=== PATIENT | female | born 1965 | race Caucasian/White ===

== ENCOUNTER 2020-08-07 06:50 | Outpatient (NON) | payer OTHER, SELFPAY ==
[2020-08-07 18:45] LABS: SARS-CoV-2 RNA PCR Negative
== END 2020-08-07 06:51 ==
LOC: ANHCOVIDDT 06:53
PROVIDERS: PCP Nurse Practitioner Family; Visit Provider Nurse Practitioner Family
DX: J32.9 Chronic sinusitis, unspecified (principal); J02.9 Acute pharyngitis, unspecified; Z20.828 Contact with and (suspected) exposure to other viral communicable diseases
CPT/HCPCS: 87635; C9803; U0003

== ENCOUNTER 2025-04-04 14:50 | Outpatient (CLI) | payer MEDICARE, MEDICAID, SELFPAY ==
--- OUTSIDE RECORDS SUMMARY | 2017-07-16 05:44 | XMS_ITS | Continuity of Care Document ---
Author Organization [facility] Address [address] [place] [address] [place] [address] Phone Care Team Providers Care Manufacturing Team Leader Name Role Phone Joby Patel MD Unavailable Unavailable Allergies, Adverse Reactions, Alerts Substance Reaction Status Criticality TERBINAFINE HCL Active No Informati on codeine Active No Information levofloxacin Active No Information ibuprofen Active No Information PENICILLIN Active No Information Medications Medication Instructions Dosage Effective Dates (start - stop) Status Comments Neurontin 100 mg capsule take 1 Capsule by oral route 3 times every day 100 MG - Active avoid driving or operate machines Xanax 0.25 mg tablet take 1 tablet by oral route every bedtime 0.25 MG - Active [place] 5 mg-325 mg tablet take 1 tablet b y oral route every 6 hours as needed for pain - Active PRN for pain, avoid driving or operate machines omeprazole 20 mg capsule,delayed release take 1 capsule by oral route every day before a meal 20 MG - Active Lipitor 40 mg tablet take 1 tablet by oral route every day 40 MG - Active hydrochlorothiazide 25 mg tablet take 1 tablet by oral route every day 25 MG - Active nifedipine ER 60 mg tablet,extended release 24 hr take 1 tablet by oral route every day 60 MG - Active Paxil 40 mg tablet take 1 tablet by oral route every day 40 MG - Active Procedures Procedure Date OFFICE/OUTPATIENT [...] Diagnoses Date Provider Providers Copied on Encounter [facility], [address], [place], [place], [id number], [phone] [facility] No Information Jorge Hemphill. [address], [place], [place], [address] , [place]. tel:[phone] OFFICE/OUTPA TIENT VISIT, [facility], [address], [place], [place], [address], tel:[phone] [facility] anxiety1 (chief complaint) back pain1 (chief complaint) HTN (chief complaint) Generalized Anxiety DisorderLumbago with sciatica, left sideEssential (primary) hypertension Jorge Hemphill. [address], [place], [place], [address] , [place]. tel:[phone] OFFICE/OUTPA TIENT VISIT, [facility], [address], [place], [place], [address], tel:[phone] [facility] HLP (chief complaint) GERD1 (chief complaint) anxiety1 (chief complaint) OAB (chief complaint) GERD w/o esophagitisGenerali zed Anxiety DisorderOveractive bladderHyperlipidem ia 7 Jorge Hemphill. [address], [place], [place], [address] , [place]. tel:[phone] Referring Provider: Joby Patel [address], [place], [place], [address]. tel:[phone] OFFICE/OUTPA TIENT VISIT, [facility], [address], [place], [place], [address], [place] tel:[phone] [facility] anxiety1 (chief complaint) OAB (chief complaint) GERD1 (chief complaint) back pain1 (chief complaint) Overactive bladderLumbago with sciatica, left sideGERD w/o esophagitisGenerali zed Anxiety Disorder 0 7 Jorge Hemphill. [address], [place], [place], [address] , [place]. tel:[phone] Referring Provider: Joby Patel [address], [place], [place], [address]. tel:[phone] OFFICE/OUTPA TIENT VISIT, [facility], [address], [place], [place], [address], [place] tel:[phone] [facility] back pain1 (chief complaint) OAB (chief complaint) Lumbago with sciatica, left sideOveractive bladder 7 Jorge Hemphill. [address], [place], [place], [address] , [place]. tel:[phone] Referring Provider: Ирина Duran [address], [place], [place], [address]. tel:[phone] OFFICE/OUTPA TIENT VISIT, [facility], [address], [place], [place], [address], [place] tel:[phone] [facility] anxiety1 (chief complaint) HLP (chief complaint) sinusitis1 (chief complaint) OAB (chief complaint) back pain1 (chief complaint) LumbagoGERD w/o esophagitisOveracti ve bladderGeneralized Anxiety Disorder 7 Jorge Hemphill. [address], [place], [place], [address] , [place]. tel:[phone] Referring Provider: Ирина Duran [address], [place], [place], [address]. tel:[phone] OFFICE/OUTPA TIENT VISIT, [facility], [address], [place], [place], [address], [place] tel:[phone] [facility] Medicine sinus (chief complaint) GERD1 (chief complaint) tobacco1 (chief complaint) obeisty1 (chief complaint) OAB (chief complaint) Acute sinusitisBody mass index (BMI) 32.0-32.9, adultGERD w/o esophagitisOveracti ve bladder 7 Jorge Hemphill. [address], [place], [place], [address] , [place]. tel:[phone] Referring Provider: [address], [place], [place], [address]. tel:[phone] OFFICE/OUTPA TIENT VISIT, [facility], [address], [place], [place], [address], [place] tel:[phone] [facility] anxiety1 (chief complaint) HTN (chief complaint) GERD1 (chief complaint) HLP (chief complaint) back apin1 (chief complaint) Essential (primary) hypertensionGeneral ized Anxiety DisorderHyperlipide miaLumbago 7 Jorge Hemphill. [address], [place], [place], [address] , [place]. tel:[phone] Referring Provider: [address], [place], [place], [address]. tel:[phone] OFFICE/OUTPA TIENT VISIT, [facility], [address], [place], [place], [address], [place] tel:[phone] [facility] HLP (chief complaint) anxiety1 (chief complaint) eyelid1 (chief complaint) back pain1 (chief complaint) HyperlipidemiaGener alized Anxiety DisorderLumbagoEyel id lag of rt eye 7 Jorge White [address], [place], [place], [address] , [place]. tel:[phone] Referring Provider: [address], [place], [place], [address]. tel:[phone] OFFICE/OUTPA TIENT VISIT, [facility], [address], [place], [place], [address], [place] tel:[phone] [facility] HLP (chief complaint) anxiety1 (chief complaint) GERD1 (chief complaint) drropy eye (chief complaint) back pain1 (chief complaint) HyperlipidemiaGERD w/ esophagitisGenerali zed Anxiety DisorderLumbago 7 Jorge Hemphill. [address], [place], [place], [address] , [place]. tel:[phone] Referring Provider: Ирина Duran [address], [place], [place], [address]. tel:[phone] OFFICE/OUTPA TIENT VISIT, [facility], [address], [place], [place], [address], [place] tel:[phone] [facility] anxiety1 (chief complaint) HTN (chief complaint) GERD1 (chief complaint) HLP (chief complaint) GERD w/o esophagitisGenerali zed Anxiety DisorderHyperlipide miaEssential (primary) hypertension 7 Jorge Hemphill. [address], [place], [address] , [place]. tel:[phone] Referring Provider: Ирина Duran [address], [place], [place], [address]. tel:[phone] PREV VISIT, NEW, AGE 40-64 [facility], [address], [place], [place], [address], [place] tel:[phone] [facility] PHysical (chief complaint) Encounter for general adult medical exam w abnormal findingsGERD w/ esophagitisGenerali zed Anxiety DisorderOveractive bladder 7 Jorge Hemphill. [address], [place], [address] , [place]. tel:[phone] Referring Provider: Ирина Duran [address], [place], [place], [address]. tel:[phone] Family History Family Member Type Diagnosis Age At Onset Father Problem (finding) parkinson Brother Problem (finding) Hypertension Brother Problem (finding) Alive and well Mother Problem (finding) Alive and well Payers Payer name Insurance type Covered green party ID Authoriza tion(s) No Information Social History Type Description Quantity Date Captured Comments Sex Female Smoking Status No Information Chief Complaint And Reason For Visit No Information Plan Of Treatment Date Type Action Status Referral Ordered: Kobe Adamson (related to Lumbago with sciatica, left side) ordered Referral Referred To: Kobe Adamson [address] [place], [phone] Ordered: Referrals: Kobe Adamson. Evaluate and treat [...] Pt needs refill. Pt denies any myalgia OAB Pt has OAB. Pt h as urgency and frequency and some stress induced leakage. Pt states oxybutynin caused her to have severe dry mouth. Pt uanble to tolerate it. anxiety1 Pt has chronic a nxiety and depression Pt takes paxil and xanax PRn and doing ok. Pt denie sany suicidal or homicidal thought. pt denies any cyring spells GERD1 Pt has GERD Pt f kendall zantac. Pt is on omeprazole. Pt still has not set up endoscopy yet. pt doing ok with omeprazole back pain1 Pt has chronic l ow [...] homicidal thought. Pt denies any crying spells back pain1 Pt has chronic l ow back pain. Pt c/o left sciatica and left leg numbness. Pt denies any loss of bladder or bowel control. Pt had MRi done which showed L4-5 impingement and left side foraminal stenosis. Pt takes ultam PRN for pain OAB Pt has urgency a nd frequency and she has OAB. Pt states that oxybubynin worked too well and she has diffiuclty urinating since taking the oxybubynin. Pt denies any buring and pelvic pain back pain1 Pt has chornic l [...] Pt denies any suicidal or homicidal thought obeisty1 Pt is overweight . Pt has hard time losign weight with diet and exercise OAB Pt has oAb. Pt h as frequent urgency to urinate Pt denies any dysuria. pt takes vesicare chronically which work ok Pt seen urology and had negative cystoscopy per pt and other work up. Pt states that vesicare works well sinus Pt has been havi ng severe sinus infection for 6 weeks. Pt had bilateral eye lid surgery and she started to have sinus pain and purulent sinus drainage since the surgery. Pt also has ear pain and muffling hearing. Pt denies any sore throat. pt states that her principal system software engineer treated her with abx x 3 rounds but she still not getting better. Pt also notices some sinus swelling post op. Pt also has sinus headache. GERD1 Pt has chronic G ERD. Pt has not seen Dr. Smith yet for the EGD consultation. pt denies any GI symptoms with omeprazole tobacco1 Pt smokes about 1 PPD. Pt denies any sob. GERD1 Pt takes omerpzo le. Pt will [...] any myalgia. her lab is ok now. HLP Pt has HLP Pt ta kes lipitor. Pt denies any myalgia anxiety1 Pt [...] xray done which showed DDD and osteoarthritis. drropy eye Pt has droopy le ft [...] on low fat and low carb diet back pain1 Pt has chronic l ow back pain. Pt has history of DDD. Pt states that she has low back pain pain with radiation to both hip. pt denies any injury. pt denies any sciatica Pt denies any loss of bladder control anxiety1 Pt has chronic a nxiety and [...] Instructions Date Instruction Additional Infor jocelynn Prescribed Activity and Exercise Education Related to Dietary Surveillance and Counseling Prescribed Diet Educ ation/Lifestyle Education Regarding Diet Related to Dietary Surveillance and Counseling Increase physical activity Relat ed to Generalized Anxiety Disorder Quit smoking Related to Gener alized Anxiety Disorder Prescribed Activity and Exercise Education Related to Dietary Surveillance and Counseling Elevate head of bed prior to sle ep Related to GERD w/o esophagitis Eat smaller meals, n o eating three hours prior to bedtime Related to GERD w/o esophagitis Avoid provocative fo ods: citrus, alcohol, coffee, chocolate, mints Related to GERD w/o esophagitis Prescribed Diet Educ ation/Lifestyle Education Regarding Diet Related to Dietary Surveillance and Counseling Weight [...] Lumbago Quit smoking Related to Lumba go Quit smoking Related to Tobac co use [...]
--- OUTSIDE RECORDS SUMMARY | 2025-01-18 05:00 | XMS_ITS ---
Author Organization 1 OF Ladi montaño DPM [facility] Address [facility] [place] [address] [address] Care Team Providers Care Deck Supervisor Name Role Phone Audra Mercado APRN Primary Care Provider Lily Downey Unavailable [phone] REASON FOR VISIT RT ankle pain Encounters Encounter Location Date Provider Diagnosis [facility] [address] [address] 01/18/2025 Lily Schroeder Plan Of Treatment No Information Progress Notes * Ofe MAGAÑADOB:1965 (59 yo F)Acc No.[id number]:01/18/2025 Progress Notes Patient: Ofe BURKS Provider: Gail Schroeder DPM :1965 A ge:59 Y S ex:Female Date:01/18/2025 Address:[address] [place] [id number] Pcp:Audra Mercado APRN Subjective: * Chief Complaints: * 1 . RT ankle pain. * Medical History: Objective: * Vitals: Assessment: Plan: * Treatment: * Images: * Electronic signature of Dasha Schroeder DPM on 04/04/2025 at 02:54 PM CDT Sign off status: Pending * Provider: Gail Schroeder DPM Date: 0 01/18/2025 Generated for Cee kaur/Emani/Brianaitting on: 0 04/04/2025 02:54 PM CDT
--- NOTE | ~2025-04-04 | MM_ITS ---
EXAMINATION: MM screening liza BI w mickey HISTORY: Screening TECHNIQUE: Craniocaudal and mediolateral oblique 3-D tomosynthesis images were obtained and synthetic 2-D images were generated. CAD analysis was submitted and interpreted. COMPARISON: None available. BREAST PARENCHYMAL COMPOSITION: There are scattered areas of fibroglandular density. FINDINGS: There is no evidence of suspicious mass, calcification, or architectural distortion to suggest malignancy in either breast. IMPRESSION: 1. No mammographic evidence of malignancy. 2. Recommend routine screening mammography in one year. BI-RADS Category 1: Negative Reviewed, dictated and finalized at location B.
--- OUTSIDE RECORDS SUMMARY | 2025-04-04 14:54 | XMS_ITS | Clinical Summary ---
Author Organization [facility] Address [address] [place] [address] Care Team Providers Care Extension Work Director Name Role Phone Audra Mercado NP Primary Care Provider [phone] Allergies Active Allergy Reactions Criticality Noted Date Comments Codeine Nausea only,Stomach upset Low 01/23/2017 Ibuprofen Stomach upset Low Latex Rash Medium Levofloxacin Stomach upset Low 01/23/2017 Nsaids (Non-Steroidal Anti-Inflammatory Drug) Nausea only Low 09/03/2020 Penicillins Hives,Rash Medium 01/23/2017 Terbinafine Unknown Low 04/07/2017 Terbinafine Hcl Angioedema,Unknown High 01/23/2017 Medications atorvastatin (LIPITOR) 40 mg tablet Take 1 tablet (40 mg total) by mouth Active hydroCHLOROthiazid e (HYDRODIURIL) 25 mg tablet Take 1 tablet (25 mg total) by mouth daily 5 8 Active omeprazole (PriLOSEC) 20 mg capsule 8 Active PARoxetine (PAXIL) 40 mg tablet Take 1 tablet (40 mg total) by mouth Active cetirizine (ZyrTEC) 10 mg tablet daily. Active docusate sodium (COLACE) 100 mg capsuleIndications :constipation Take 1 capsule (100 mg total) by mouth 2 (two) times a day Active melatonin 5 mg tablet,chewable Take by mouth. Active cholecalciferol (VITAMIN D-3) 2,000 unit capsule Take 1 capsule (2,000 Units total) by mouth Active pregabalin (LYRICA) 75 mg capsule Take 1 capsule (75 mg total) by mouth 2 (two) times a day. 60 capsule 5 8 Active multivitamin with minerals (Multiple Vitamin-Minerals) tablet Take by mouth Active albuterol HFA (PROVENTIL HFA,VENTOLIN HFA,PROAIR HFA) 90 mcg/actuation inhaler INHALE 2 PUFFS INTO THE LUNGS EVERY 4 (FOUR) HOURS NEEDED FOR WHEEZING. Active albuterol HFA (PROVENTIL HFA,VENTOLIN HFA,PROAIR HFA) 90 mcg/actuation inhaler 2 Active amLODIPine (NORVASC) 10 mg tablet 2 Active budesonide-formote roL (SYMBICORT) 160-4.5 mcg/actuation inhaler Inhale 2 puffs 2 (two) times a day 1 Active bupivacaine HCl (MARCAINE) 0.5 % (5 mg/mL) injection Take 20 mg by injection route. [address] (CYMBALTA) 30 mg capsule 1 Active erythromycin (ILOTYCIN) ophthalmic ointment Active gentamicin (GARAMYCIN) 0.3 % (3 mg/gram) ophthalmic ointment apply 1/2 inch to affected eye tid Active HYDROcodone-acetam inophen (NORCO) 10-325 mg per tablet 2 Active Lacto.acidophilus- Bif.animalis 32 billion cell capsule Take 1 capsule by mouth 3 times daily Active lidocaine (LIDODERM) 5 % APPLY 1 PATCH TO SKIN DAILY. REMOVE AND DISCARD PATCH WITHIN 12 HOURS 2 Active neomycin-polymyxin B-dexAMETHasone (MAXITROL) 3.5 mg/g-10,000 unit/g-0.1 % ointment APPLY A SMALL AMOUNT TO THE LEFT LID AT BEDTIME. 1 Active nystatin 100,000 unit/mL suspension A ctive ondansetron (ZOFRAN) 4 mg tablet Active gabapentin (NEURONTIN) 400 mg capsule 2 Active ALPRAZolam (NIRAVAM) 0.25 mg disintegrating tablet Take 1 tablet (0.25 mg total) by mouth nightly as needed for anxiety Active Active Problems Problem Noted Date Diagnosed Date Cervical spondylosis with myelopathy and radicul opathy 06/25/2022 Assessment & Plan (06/25/2022 4:25 PM DIGITAL ASSOCIATE MEDIA DIRECTOR): Ms. Magaña has cervical stenosis C4-5 C5-6 C6-7 with radiculopathy and myelopathy. Reviewed her cervical MRI and x-rays with Dr. Montoya who states that she has significant stenosis at all 3 levels. He recommends C4-7 ACDF. Patient would need to be nicotine free prior to consideration of surgical intervention. She will also need a CT of the cervical spine without contrast to rule out OPLL (Ossification of the Posterior Longitudinal Ligament). Patient is aware of the above and verbalizes understanding. She likely will continue her smoking cessation efforts and plans on calling the office back to schedule further testing (nicotine test and CT cervical without contrast) after the of the year. All of her questions and concerns were addressed today. Knee pain 04/03/2022 Osteoarthritis 04/03/2022 Disorder of shoulder 04/03/2022 Pain in limb 04/03/2022 Hyperlipidemia 04/03/2022 Sinusitis 04/03/2022 Osteoarthritis of left knee 02/17/2022 Acquired hallux rigidus of right foot 01/30/2022 Sinus tarsi syndrome 01/30/2022 Moderate episode of recurrent major depressive d isorder 01/27/2022 Simple chronic bronchitis 01/27/2022 Acute abdominal pain in right flank 10/08/2021 Mixed hyperlipidemia 10/08/2021 Acquired pes planus of right foot 09/20/2021 Sprain of right ankle 06/19/2021 Postoperative pain 06/14/2021 Fever 10/03/2020 Body aches 10/03/2020 Osteoarthrosis 09/03/2020 Chronic gum disease 09/03/2020 Current tear of medial cartilage or meniscus of knee 09/03/2020 Primary insomnia 09/03/2020 Sore throat 09/03/2020 Acquired trigger finger 09/03/2020 Adhesive capsulitis of shoulder 09/03/2020 Chronic nonintractable headache 05/30/2020 Numbness and tingling 05/30/2020 SOB (shortness of breath) 05/30/2020 Weakness 05/30/2020 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 Sacroiliitis 03/08/2020 Arthritis of right knee 02/14/2020 Osteoarthritis of carpometacarpal (CMC) joint of thumb 10/18/2019 Trigger finger of left hand 10/18/2019 Pain in right knee 09/26/2019 Trochanteric bursitis of left hip 09/26/2019 Arthralgia of right ankle 09/04/2019 Hammer toe 09/04/2019 Bursitis of right hip 08/29/2019 Contracture of hand joint, right 08/29/2019 Neuroma of foot 08/29/2019 Rash 08/29/2019 Rose's neuroma of left foot 07/27/2019 Tear of right rotator cuff 06/16/2019 Pain in left foot 05/24/2019 Sesamoiditis 05/24/2019 Capsulitis of metatarsophalangeal (MTP) joint of left foot 05/24/2019 Primary osteoarthritis of both hips 04/26/[address] of spine 03/22/2019 Degeneration of intervertebral disc of lumbar re gion 03/22/2019 Foraminal stenosis of lumbar region 03/22/2019 Neuropathy 03/22/2019 Seborrheic keratosis 03/22/2019 Chronic midline low back pain with bilateral sci atica 03/22/2019 Chronic frontal sinusitis 02/17/2019 Wheezing 02/17/2019 Abdominal pain 10/31/2018 DDD (degenerative disc disease), thoracolumbar 0 10/07/2018 Osteoarthritis of feet, bilateral 10/07/2018 Current every day smoker 08/20/2018 Chronic bilateral back pain 05/05/2018 Drug-induced constipation 02/23/2018 Risk for falls 02/23/2018 Pain of right upper arm 02/22/2018 Chronic pain of right knee 12/30/2017 Pain in joint of right shoulder 12/30/2017 Anxiety 11/20/2017 Arthritis 11/20/2017 Facet hypertrophy of lumbar region 11/20/2017 Lumbar radiculopathy, chronic 11/20/2017 Chronic left hip pain 11/20/2017 Leg pain 11/20/2017 Chronic pain 11/20/2017 Low back pain 11/20/2017 OAB (overactive bladder) 10/12/2017 Urinary incontinence 10/07/2017 Osteoarthritis of lumbar spine 09/14/2017 Overview (04/03/2022): XR XR Overview: XR GERD (gastroesophageal reflux disease) 8 Benign essential hypertension 08/16/2017 Vitamin D deficiency 08/16/2017 Anxiety and depression 08/11/2017 Cough 08/11/2017 Seasonal allergies 08/11/2017 Spinal stenosis 08/11/2017 Generalized osteoarthritis 05/01/2017 Generalized osteoarthritis 05/01/2017 Hypertension 05/01/2017 Hypercholesterolemia 05/01/2017 Elbow pain, chronic, right 08/10/2013 Surgical History Surgery Date Site/Laterality Comments ME TOTAL ABDOMINAL HYSTERECT W/WO RMVL TUBE OVARY Hysterectomy - (Added by TW Conv) EYE SURGERY Eye Surgery - (Added by TW Conv) FOOT SURGERY Foot Surgery - (Added by TW Conv) ME NEUROPLASTY &/TRANSPOS MEDIAN NRV CARPAL TUNNE Neuroplasty Decompression Median Nerve At Carpal Tunnel - (Added by TW Conv) SINUS SURGERY Sinus Surgery - (Added by TW Conv) ME INJ LUMBAR/SACRAL,W/WO CNTRST Corticosteroid Injection Interlaminar Approach Lumbar - (Added by TW Conv) TONSILECTOMY, ADENOIDECTOMY, BILATERAL MYRINGOTOMY AND TUBES 08/10/1984 - 08/09/1985 Medical History Medical History Date Comments Anxiety Hypertension Arthritis Knee injury Hypertension Depression Hyperlipidemia Family History Medical History Relation Name Comments Hypertension Brother Hypertension Father Hypertension Mother Parkinsonism Mother Hypertension Sister Relation Name Status Comments Brother Father Mother Sister Social History Tobacco Use Types Packs/Day Years Used Date Smoking Tobacco: Every Day Cigarettes Smokeless Tobacco: Never Tobacco Cessation:Ready to Q uit: Not Asked; Counseling Given: Not Answered Alcohol Use Standard Drinks/Week Comments No 0 (1 standard drink = 0.6 oz pur e alcohol) AUDIT-C Answer Date Recorded Q1: How often do you have a drink containing alc ohol? Never 06/25/2022 Average Number of Drinks Not on file 022 Frequency of Binge Drinking Not on file 06/10 PHQ-2 Answer Date Recorded PHQ-2 Total Score (If total score is 3 or more points, staff should administer the PHQ-9) 2 06/25/2022 Personal Safety Answer Date Recorded Getting School Help Needed Not on file 07/25 Comments No Sex and Gender Information Value Date Recorded Sex Assigned at Not on file Legal Sex Female 6:13 AM DIGITAL ASSOCIATE MEDIA DIRECTOR Gender Identity Not on file Sexual Orientation Not on file Obstetrics History Last Filed Vital Signs Vital Sign Reading Time Taken Comments Blood Pressure 147/73 04/04/2022 9:38 AM CDT Pulse 88 04/04/2022 9:38 AM CDT Temperature 36.8 C (98.3 F) 05/14/2018 8:59 AM CDT Respiratory Rate 16 06/25/2022 3:22 PM DIGITAL ASSOCIATE MEDIA DIRECTOR Oxygen Saturation 97% 03/04/2018 9:58 AM CDT Inhaled Oxygen Concentration - - Weight 82.6 kg (182 lb) 06/25/2022 3:22 PM DIGITAL ASSOCIATE MEDIA DIRECTOR Height 165.1 cm (5' 5) 06/25/2022 3:22 PM DIGITAL ASSOCIATE MEDIA DIRECTOR Body Mass Index 30.29 06/25/2022 3:22 PM DIGITAL ASSOCIATE MEDIA DIRECTOR Plan of Treatment Health Maintenance Due Date Last Done Comments Breast Cancer Screening-Mammogram 1966 Colon Cancer Screening-Colonoscopy 1966 Hepatitis C Screening 1966 Hepatitis B Screening 1984 Regular Well Visit/Exam 18-64 1984 Pneumococcal vaccine <65 (3 of 3 - PCV20 or PCV21) 2016 08/14/2006, 08/10/2005, 08/10/2005 Depression Screening 06/25/2023 06/25/2022, 06/25/20 22 Covid-19 Vaccine (4 - 2023-2 5 season) 2024 05/09/2021, 10/16/2020, 09/18/2020 Influenza Vaccine (#1) 2025 , 04/27/2021, 04/27/2020, Additional history exists DTaP/Tdap/Td Vaccine (4 - Td or Tdap) 02/23/2028 02/22/2018, 08/10/2001, 08/10/2001 Zoster Vaccine Completed 07/21/2020, 04/27/2020 Insurance [facility] MEDICAID MEDICARE IDRI [facility] MEDICARE ADVANTAGE MEDICARE IDPA MEDICARE IDPA Care Teams Extension Work Director Relationship Specialty Start Date End Date Audra Mercado NP [address] [place] [id number] PCP - General Nurse Practitioner 04/01/22
--- OUTSIDE RECORDS SUMMARY | 2025-04-04 14:54 | XMS_ITS | Clinical Summary ---
Author Organization [facility] Address [address] [place] [address] Care Team Providers Care Swedger Name Role Phone Audra Mercado ARJUN Primary Care Provider [phone] Source Comments [facility],non-owned Affiliates and Associated Physician Practices is amultiple site organization consisting of ambulatory clinics and hospital sitesin [place], [place], [place] and [place]. This disclosure is being madepursuant to the Care Everywhere program and may not contain all information available regarding this patient. Last updated 18.[facility] Allergies Active Allergy Reactions Criticality Noted Date Comments Codeine GI Discomfort 01/23/2017 Ibuprofen 01/23/2017 Terbinafine Hcl 01/23/2017 Latex 01/23/2017 Levofloxacin GI Discomfort 01/23/2017 Penicillins Rash Medium 01/23/2017 Terbinafine Unknown Low 04/07/2017 Medications * Be aware that medications may not be up to date on this document. Alwaysverify current medications with the patient. ALPRAZolam (XANAX) 0.25 MG tablet Take 0.25 mg by mouth nightly as needed for Anxiety Active cetirizine (ZYRTEC ALLERGY) 10 MG tablet Take 10 mg by mouth once daily Active Cholecalciferol (VITAMIN D) 2000 UNITS capsule Take 2,000 Units by mouth 2 times daily Active hydroCHLOROthiaz mart (HYDRODIURIL) 25 MG tablet Take 25 mg by mouth once daily 5 8 Active HYDROcodone-acet aminophen (NORCO) 10-325 MG tablet 1 tablet every 8 hours as needed 8 Active omeprazole (PRILOSEC) 20 MG capsuleIndicatio ns:Gastroesophag eal reflux disease without esophagitis Take 1 capsule by mouth daily before breakfast 30 capsule 8 Active atorvastatin (LIPITOR) 40 MG tablet Take 1 tablet by mouth at bedtime 30 tablet 8 Active gabapentin (NEURONTIN) 300 MG capsuleIndicatio ns:Chronic pain syndrome Take 1 capsule by mouth 3 times daily 90 capsule 8 Active PARoxetine (PAXIL) 40 MG tablet Take 1 tablet by mouth once daily 30 tablet 8 Active Multiple Vitamins-Mineral s (EQ COMPLETE MULTIVITAMIN-NAHID LT PO) Active Active Problems Problem Noted Date Diagnosed Date Risk for falls 02/23/2018 Drug-induced constipation 02/23/2018 Chronic pain of right knee 02/22/2018 Pain of right upper arm 02/22/2018 Osteoarthritis of lumbar spine 09/14/2017 Overview (02/22/2018): XR Elbow pain, chronic, right 08/10/2013 Hypertension Hyperlipidemia GERD (gastroesophageal reflux disease) Chronic pain Anxiety and depression Vitamin D deficiency Seasonal allergies OAB (overactive bladder) Current every day smoker Resolved Problems Problem Noted Date Diagnosed Date Resolved Date Tobacco use disorder 02/22/2018 018 Immunizations Immunization Administration Dates Next Due INFLUENZA VACCINE, QUADR. (F LUZONE; FLULAVAL; FLUARIX; AFLURIA QUADRIVALENT; 6MO+), 0.5 ML (IIV4) 04/19/2018 PNEUMOCOCCAL PPSV23 08/14/2006 TDAP (7yrs+) 02/22/2018 Family History Medical History Relation Name Comments Hypertension Brother Asthma Daughter Hypertension Father Parkinson's Disease Father had sinc e 1993 Cancer - Breast Maternal Grandmother Hypertension Maternal Grandmother Arthritis - Osteo Mother hip replac ement Hypertension Mother Hypertension Sister Relation Name Status Comments Brother Alive Daughter Alive Father Alive Maternal Grandmother Mother Alive Sister Alive Social History Tobacco Use Types Packs/Day Years Used Date Smoking Tobacco: Every Day Cigarettes 1 35 Smokeless Tobacco: Never Tobacco Cessation:Ready to Q uit: No; Counseling Given: No Alcohol Use Standard Drinks/Week Comments No 0 (1 standard drink = 0.6 oz pur e alcohol) Comments No Sex and Gender Information Value Date Recorded Sex Assigned at Not on file Legal Sex Female 10:04 AM CDT Gender Identity Not on file Sexual Orientation Not on file Last Filed Vital Signs Vital Sign Reading Time Taken Comments Blood Pressure 138/76 02/28/2019 10:02 AM CDT Pulse 79 02/28/2019 10:02 AM CDT Temperature 36.4 C (97.6 F) 05/31/2018 8:01 AM CDT Respiratory Rate 18 01/23/2017 11:04 AM CDT Oxygen Saturation 96% 04/19/2018 10:50 AM CDT Inhaled Oxygen Concentration - - Weight 90.3 kg (199 lb) 02/28/2019 10:02 AM CDT Height 165.1 cm (5' 5) 02/28/2019 10:02 AM CDT Body Mass Index 33.12 02/28/2019 10:02 AM CDT Plan of Treatment Health Maintenance Due Date Last Done Comments COLOGUARD (AGES 45-75) - COLON CA SCREENING 1966 COLON MONITORING 1966 COLONOSCOPY - COLON CA SCREENING 1966 CT COLONOGRAPHY - COLON CA SCREENING 1966 Colorectal Cancer Screening 1966 FIT - COLON CA SCREENING 1966 FLEX SIG - COLON CA SCREENING 1966 HIV SCREENING 1981 HEPATITIS C SCREENING 12/11/1984 HEPATITIS B VACCINE (1 of 3 - 19+ 3-dose series) 1985 PNEUMOCOCCAL VACCINE 50+ (2 of 2 - PCV) 08/14/2007 08/14/2006 ZOSTER VACCINE (1 of 2) 2016 MAMMOGRAM 02/04/2020 02/03/2018 (Done Outside Per Report) COVID-19 VACCINE (5 - season) 2024 05/28/2022, 05/09/2021, 10/16/2020, Additional history exists DEPRESSION SCREENING 08/10/2024 MEDICARE AWV CALENDAR YEAR 2024 INFLUENZA VACCINE (#1) 2025 3, 05/20/2022, 04/27/2021, Additional history exists SCREENING FOR DIABETES 12/02/2025 3, 01/26/2019, 01/26/2019, Additional history exists DTAP/TDAP/TD VACCINES (2 - Td or Tdap) 02/23/2028 02/22/2018 HIB VACCINE Aged Out No longer eligi ble based on patient's age to complete this topic HPV VACCINE Aged Out No longer eligi ble based on patient's age to complete this topic MENINGOCOCCAL (Group B) VACCINE SHARED DECISION-MAKING Aged Out No longer eligible based on patient's age to complete this topic MENINGOCOCCAL GROUPS A/C/Y/W VACCINE Aged Out No longer eligible based on patient's age to complete this topic Insurance MEDICAID - OUT OF STATE MEDICARE FOR[facility]LY [facility] PLAN [facility] MANAGED MEDICARE ADV Care Teams Swedger Relationship Specialty Start Date End Date Audra Mercado APRN-ALFONSO [address] [place] [address] PCP - General 02/28/19
--- OUTSIDE RECORDS SUMMARY | 2025-04-04 14:54 | XMS_ITS | Encounter Summary ---
Author Organization [facility] Address [address] [place] [address] Care Team Providers Care Senior Systems Developer Name Role Phone Soraya Hodgson HAND TURNER-EDUCATIONAL PSYCHOLOGY TEACHER Primary Care Provider Audra Mercado HAND TURNER-EDUCATIONAL PSYCHOLOGY TEACHER Primary Care Provider [phone] Reason for Visit * Reason Onset Date Comments MEDICATION REFILL 07/04/2018 refill request Encounter Details Date Type Department Care Team (Late st Contact Info) Description 07/04/2018 Refill [facility] General Internal Medicine [address] [address] Soraya Hodgson, HAND TURNER-EDUCATIONAL PSYCHOLOGY TEACHER [address] [place] [address] MEDICATION REFILL (refill request ) Social History Tobacco Use Types Packs/Day Years Used Date Smoking Tobacco: Every Day Cigarettes 1 35 Smokeless Tobacco: Never Alcohol Use Standard Drinks/Week Comments No 0 (1 standard drink = 0.6 oz pur e alcohol) Comments No Sex and Gender Information Value Date Recorded Sex Assigned at Not on file Legal Sex Female 10:04 AM CDT Gender Identity Not on file Sexual Orientation Not on file documented as of this encounter Miscellaneous Notes * Telephone Encounter - Mervat Yoder - 07/05/2018 7:45 AM CST After further review refill for omeprazole 20 mg was completed on 04-19-18. [facility] 0722 Replaced by [facility] [address] [facility] [address] ENT GRINDER * Telephone Encounter - Mervat Yoder - 07/05/2018 7:44 AM CSTFrom: Ofe Magaña To: Soraya Renner APRN-CNP Sent: 07/04/2018 5:07 PM PIGMENT GRINDER Subject: Medication Renewal Request Original authorizing provider: ARJUN Garza would like a refill of the following medications: omeprazole (PRILOSEC) 20 MG capsule [ARJUN Garza] [facility] [address] [address] [facility] [address] Comment: Also need refills on Paroxetine 40 mg Atorvastatin 40 mg I never did get the Nabumetone it only comes in the 750 mg. My pharmacy has sent information to you all and have never heard back from you all. ENT GRINDER documented in this encounter Plan of Treatment Not on file documented as of this encounter Visit Diagnoses Diagnosis Gastroesophageal reflux disease without esophagitis Esophageal reflux documented in this encounter Care Teams Senior Systems Developer Relationship Specialty Start Date End Date Soraya Hodgson APRN-CNP [address] [place] [address] PCP - General 02/22/18 02/27/19 Audra Mercado APRN-CNP [address] [place] [address] PCP - General 02/28/19 documented as of this encounter
--- OUTSIDE RECORDS SUMMARY | 2025-04-04 14:54 | XMS_ITS | Encounter Summary ---
Author Organization [facility] Address [address] [facility] [place] [address] Care Team Providers Care Bridge Expert Name Role Phone Soraya Hodgson FINAL INSPECTOR TRUCK TRAILER-INVESTIGATOR VICE Primary Care Provider Audra Mercado FINAL INSPECTOR TRUCK TRAILER-INVESTIGATOR VICE Primary Care Provider [phone] Reason for Visit * Reason Onset Date Comments Question 02/23/2018 Encounter Details Date Type Department Care Team (Late st Contact Info) Description 02/23/2018 Telephone [facility] General Internal Medicine [address] [address] Soraya Hodgson, FINAL INSPECTOR TRUCK TRAILER-INVESTIGATOR VICE [address] [place] [address] Question Social History Tobacco Use Types Packs/Day Years [...] encounter Miscellaneous Notes * Telephone Encounter - Vero Edmond - 02/23/2018 11:14 AM CDT PT: Gómez Thakur PH: [phone] Ms. Carrington called from Medicaid DME requesting that LUDIN Renner send a order for a cane for the patient and would like it faxed to [phone] and would like her to call when completed and Ms. Carrington's number is [phone]. MELVIN: 02.22.18 NOV: 05.26.18 Vero Gomes documented in this encounter Plan of Treatment Not on file documented as of this encounter Visit Diagnoses Not on filedocumented in this encounter Care Teams Bridge Expert Relationship Specialty Start Date End Date Soraya Hodgson APRN-INVESTIGATOR VICE [address] [place] [address] PCP - General 02/22/18 02/27/19 Audra Mercado APRN-CNP [address] [place] [address] PCP - General 02/28/19 documented as of this encounter
--- OUTSIDE RECORDS SUMMARY | 2025-04-04 14:54 | XMS_ITS | Encounter Summary ---
Author Organization [facility] Address [address] [place] [address] Care Team Providers Care Brand Specialist Name Role Phone Audra Mercado NP Primary Care Provider + [phone] Kathleen, Physician Primary Care Provider [phone] Audra Mercado NP Primary Care Provider [phone] Reason for Visit * Reason Onset Date Comments CALL BACK 01/13/2018 Encounter Details Date Type Department Care Team (Late st Contact Info) Description 01/13/[address] [facility] [address] [facility] [address] [place] [phone] Joseph Orlando MD [address] [place] [address], [address] [address] CALL BACK Social History Tobacco Use Types Packs/Day Years Used Date Smoking Tobacco: Every Day Comments Unknown Sex and Gender Information Value Date Recorded Sex Assigned at Not on file Legal Sex Female 6:13 AM GENERATOR TECHNICIAN Gender Identity Not on file Sexual Orientation Not on file documented as of this encounter Plan of Treatment Not on file documented as of this encounter Visit Diagnoses Not on filedocumented in this encounter Care Teams Brand Specialist Relationship Specialty Start Date End Date Audra Mecrado NP [address] [place] [address] PCP - General 12/29/17 01/19/18 No, Physician PCP - General 01/20/18 03/31/22 Audra Mercado NP [address] [place] [address] PCP - General Nurse Practitioner 04/01/22 documented as of this encounter
--- OUTSIDE RECORDS SUMMARY | 2025-04-04 14:54 | XMS_ITS | Patient Health Record ---
Author Organization [facility] Address [address] [address] Care Team Providers Care Mortgage Underwriter Name Role Phone Audra Mercado APRN Primary Care Provider Lily Downey Unavailable [phone] Mason Vickers Unavailable [phone] Allergies Allergen (clinical drug ingredient) Drug/Non Drug Allergy documented on EMR Reaction Allergy Type Onset Date Status Vicodin Unknown Drug Allergy Active Latex Latex Unknown Allergy Active Non-steroidal anti-inflammatory agent (FN) NSAIDs Unknown Drug Allergy Active Penicillin Unknown Drug Allergy Active Tape Unknown Allergy Active Reason For Referral No Information Medications Medication SIG (Take, Route, Frequency, Duration) Notes Start Date End Date Status OptiChamber Nika - USE WITH INHALERS; Duration: 30 Days Active Cyclobenzaprine HCl 10 MG TAKE 1 TABLET BY MOUTH THREE TIMES A DAY NEEDED FOR MUSCLE SPASMS Oral; Duration: 13 Days Active Pregabalin 75 MG TAKE 1 CAPSULE BY MOUTH THREE TIMES A DAY Oral; Duration: 30 Days Active Triamcinolone Acetonide 0.1 % APPLY TOPI MICHEAL TWICE A DAY External; Duration: 30 Days Active amLODIPine Besylate 10 MG TAKE 1 TABLET BY MOUTH EVERY DAY Oral; Duration: 90 Days Active DULoxetine HCl 30 MG TAKE 1 CAPSULE BY MOUTH EVERY DAY Oral; Duration: 90 Days Active Atorvastatin Calcium 40 MG TAKE 1 TABLET BY MOUTH EVERY DAY Oral; Duration: 90 Days Active HYDROcodone-Acetaminophen 5- 325 MG TAKE 1-2 TABLETS BY MOUTH EVERY 6 HOURS NEEDED FOR CHRONIC PAIN Oral; Duration: 15 Days Active PARoxetine HCl 40 MG TAKE 1 TABLET BY MOUTH EVERY DAY IN THE MORNING Oral; Duration: 90 Days Active Pantoprazole Sodium 20 MG TAKE 1 TABLET BY MOUTH EVERY DAY Oral; Duration: 90 Days Active Symbicort 160-4.5 MCG/ACT INHALE 2 PUFFS INTO THE LUNGS TWICE A DAY Inhalation; Duration: 30 Days Active Lidocaine 5 % APPLY 1 PATCH TO SKI N DAILY. REMOVE AND DISCARD PATCH WITHIN 12 HOURS External; Duration: 30 Days Active Albuterol Sulfate HFA 108 (9 0 Base) MCG/ACT INHALE 2 PUFFS BY MOUTH EVERY 6 HOURS NEEDED FOR WHEEZE Inhalation; Duration: 16 Days Active hydroCHLOROthiazide 25 MG TAKE 1 TABLET BY MOUTH EVERY DAY IN THE MORNING Oral; Duration: 90 Days Active Social History Tobacco Use: Social History Observation Description Date Details (start date - stop date) Current Smoker NA - NA Tobacco Control (Standard) Question Answer Notes Tobacco use: Current smoker How often do you smoke cigarettes? Every day How many cigarettes a day do you smoke? 6-10 Problems Problem Type SNOMED Code ICD Code Onset Dates Problem Status W/U Status Risk Notes Problem Acquired hallux rigidus (4549661) Hallux rigidus, right foot (M20.21) Active confirmed Problem Laxity of ligament (56360608) Ligamentous laxity of right ankle (M24.271) Active confirmed Vital Signs Height 65 in 03/15/2025 Weight 190 lbs 03/15/2025 BMI 31.61 kg/m2 03/15/2025 Encounters Encounter Location Date Provider Diagnosis [address] [facility] [address] [place] [address] 10/19/2024 Lily Schroeder Hallux rigidus, righ t foot M20.21 ; Peroneal tendonitis of right lower leg M76.71 and Right foot pain M79.671 1 OF Ladi Paredes [facility] [address] [place] [address] 03/15/2025 Lily Schroeder Ligamentous laxity o f right ankle M24.271 ; Peroneal tendonitis of right lower leg M76.71 and Right foot pain M79.[address] [facility] [address] [place] [address] 10/11/2024 Mason Vickers Assessments Encounter Date Diagnosis (ICD Code) Assessment Notes Treatment Notes Treatment Clinical Notes Section Notes 10/19/2024 Hallux rigidus, right foot (ICD-10 - M20.21) She was advised to wear good supportive shoes. She can rest, ice and elevate the joint as needed for pain. I discussed the potential of a steroid injection if she has a significant flareup of pain. 10/19/2024 Peroneal tendonitis of right lower leg (ICD-10 - M76.71) Patient visit today included a review of medical history, review of systems, physical exam and discussion of exam findings, diagnostic test results, and discussion of diagnoses and treatment options. Recommended initial treatment today consisting of resting, icing, elevating the foot as needed for pain. I recommended immobilization in an ankle brace which was dispensed today. She was advised to wear this in a good supportive shoe. I discussed potential transition into orthotics. She was advised to call with any issues prior too her next visit. 03/15/2025 Ligamentous laxity of right ankle (ICD-10 - M24.271) 03/15/2025 Right foot pain (ICD-10 - M79.671) 03/15/2025 Peroneal tendonitis of right lower leg (ICD-10 - M76.71) Evaluation today included a review of medical history, review of systems, discussion of exam findings, and review of diagnoses and treatment options. Recommended that she continue to wear the ankle brace for as long as needed. She was advised she can try a smaller ankle brace as well. She was advised to continue wearing good supportive shoes. I discussed the use of inserts in her shoes however she has found these uncomfortable in the past. She was advised to try using a hightop sneaker or shoe to see if this feels comfortable for her. I discussed the possibility of trying physical therapy to strengthen her lateral ankle. She will consider this as an option. She is not interested in undergoing surgical intervention at this time. She would like to continue to monitor her symptoms and will call if anything changes. 10/19/2024 Right foot pain (ICD-10 - M79.671) Plan Of Treatment No Information Insurance Providers Payer Name Payer Address Payer Phone Subscriber Number Group Number Insured Name Patient Relationship to Insured Coverage Start Date Coverage End Date [employer] Medicare Complete [address] [address] [place] [address] [id number] Ofe Magaña Self - patient is the insured [facility] [address] [address] [place] [address] [id number] Ofe Magaña Self - patient is the insured Medical (General) History Medical History History ICD Code Anxiety disorder Arthritis High blood pressure High cholesterol Migraine Hallux Rigidus Pes planus PAD
== END 2025-04-04 14:51 | disposition home or self-care (01) ==
LOC: ANHFOHIMG 14:52
PROVIDERS: PCP Nurse Practitioner Family; Visit Provider Obstetrics & Gynecology
DX: Z12.31 Encounter for screening mammogram for malignant neoplasm of breast (principal)
CPT/HCPCS: 77063; 77067

== ENCOUNTER 2025-04-25 15:34 | Outpatient (CLI) | payer MEDICARE, MEDICAID, SELFPAY ==
--- OUTSIDE RECORDS SUMMARY | 2017-07-16 05:44 | XMS_ITS | Continuity of Care Document ---
Author Organization [facility] Address [address] [place] [address] [place] [address] Phone Care Team Providers Care Piercing Specialist Name Role Phone Joby Patel MD Unavailable Unavailable Allergies, Adverse Reactions, Alerts Substance Reaction Status Criticality TERBINAFINE HCL Active No Informati on codeine Active No Information levofloxacin Active No Information ibuprofen Active No Information PENICILLIN Active No Information Medications Medication Instructions Dosage Effective Dates (start - stop) Status Comments [place] 5 mg-325 mg tablet take 1 tablet b y oral route every 6 hours as needed for pain - Active PRN for pain, avoid driving or operate machines Xanax 0.25 mg tablet take 1 tablet by oral route every bedtime 0.25 MG - Active Neurontin 100 mg capsule take 1 Capsule by oral route 3 times every day 100 MG - Active avoid driving or operate machines Lipitor 40 mg tablet take 1 tablet by oral route every day 40 MG - Active omeprazole 20 mg capsule,delayed release take 1 capsule by oral route every day before a meal 20 MG - Active Paxil 40 mg tablet take 1 tablet by oral route every day 40 MG - Active nifedipine ER 60 mg tablet,extended release 24 hr take 1 tablet by oral route every day 60 MG - Active hydrochlorothiazide 25 mg tablet take 1 tablet by oral route every day 25 MG - Active Procedures Procedure Date OFFICE/OUTPATIENT VISIT, EST OFFICE/OUTPATIENT VISIT, EST OFFICE/OUTPATIENT VISIT, EST OFFICE/OUTPATIENT VISIT, EST OFFICE/OUTPATIENT VISIT, EST OFFICE/OUTPATIENT VISIT, EST OFFICE/OUTPATIENT VISIT, EST OFFICE/OUTPATIENT VISIT, EST OFFICE/OUTPATIENT VISIT, EST OFFICE/OUTPATIENT VISIT, EST PREV VISIT, NEW, AGE 40-64 OFFICE/OUTPATIENT VISIT, NEW Advance Directives Directive Yes / No Effective Date File Name No Information Encounters Encounter Description Practice Location Reason(s) For Visit Diagnoses Date Provider Providers Copied on Encounter [facility], [address], [place], [place], [address], [phone] [facility] No Information Jorge Hemphill. [address], [place], [place], [address] , [place]. tel:[phone] OFFICE/OUTPA TIENT VISIT, [facility], [place], [address], [place], [place], [address], tel:[phone] [facility] anxiety1 (chief complaint) back pain1 (chief complaint) HTN (chief complaint) Generalized Anxiety DisorderLumbago with sciatica, left sideEssential (primary) hypertension Jorge Hemphill. [address], [place], [place], [address] , [place]. tel:[phone] OFFICE/OUTPA TIENT VISIT, [facility], [place], [address], [place], [place], [address], tel:[phone] [facility] HLP (chief complaint) GERD1 (chief complaint) anxiety1 (chief complaint) OAB (chief complaint) GERD w/o esophagitisGenerali zed Anxiety DisorderOveractive bladderHyperlipidem ia 7 Jorge Hemphill. [address], [place], [place], [address] , [place]. tel:[phone] Referring Provider: Joby Patel [address], [place], [place], [address]. tel:[phone] OFFICE/OUTPA TIENT VISIT, [facility], [place], [address], [place], [place], [address], [place] tel:[phone] [facility] anxiety1 (chief complaint) OAB (chief complaint) GERD1 (chief complaint) back pain1 (chief complaint) Overactive bladderLumbago with sciatica, left sideGERD w/o esophagitisGenerali zed Anxiety Disorder 0 7 Jorge Hemphill. [address], [place], [place], [address] , [place]. tel:[phone] Referring Provider: Joby Patel [address], [place], [place], [address]. tel:[phone] OFFICE/OUTPA TIENT VISIT, [facility], [place], [address], [place], [place], [address], [place] tel:[phone] [facility] back pain1 (chief complaint) OAB (chief complaint) Lumbago with sciatica, left sideOveractive bladder 7 Jorge Hemphill. [address], [place], [place], [address] , [place]. tel:[phone] Referring Provider: Ирина Duran [address], [place], [place], [address]. tel:[phone] OFFICE/OUTPA TIENT VISIT, [facility], [place], [address], [place], [place], [address], [place] tel:[phone] [facility] anxiety1 (chief complaint) HLP (chief complaint) sinusitis1 (chief complaint) OAB (chief complaint) back pain1 (chief complaint) LumbagoGERD w/o esophagitisOveracti ve bladderGeneralized Anxiety Disorder 7 Jorge Hemphill. [address], [place], [place], [address] , [place]. tel:[phone] Referring Provider: Ирина Duran [address], [place], [place], [address]. tel:[phone] OFFICE/OUTPA TIENT VISIT, [facility], [place], [address], [place], [place], [address], [place] tel:[phone] [facility] Medicine sinus (chief complaint) GERD1 (chief complaint) tobacco1 (chief complaint) obeisty1 (chief complaint) OAB (chief complaint) Acute sinusitisBody mass index (BMI) 32.0-32.9, adultGERD w/o esophagitisOveracti ve bladder 7 Jorge Hemphill. [address], [place], [place], [address] , [place]. tel:[phone] Referring Provider: [address]ина [address], [place], [place], [address]. tel:[phone] OFFICE/OUTPA TIENT VISIT, [facility], [place], [address], [place], [place], [address], [place] tel:[phone] [facility] anxiety1 (chief complaint) HTN (chief complaint) GERD1 (chief complaint) HLP (chief complaint) back apin1 (chief complaint) Essential (primary) hypertensionGeneral ized Anxiety DisorderHyperlipide miaLumbago 7 Jorge Hemphill. [address], [place], [place], [address] , [place]. tel:[phone] Referring Provider: [address]ина [address], [place], [place], [address]. tel:[phone] OFFICE/OUTPA TIENT VISIT, [facility], [place], [address], [place], [place], [address], [place] tel:[phone] [facility] HLP (chief complaint) anxiety1 (chief complaint) eyelid1 (chief complaint) back pain1 (chief complaint) HyperlipidemiaGener alized Anxiety DisorderLumbagoEyel id lag of rt eye 7 Jorge White [address], [place], [place], [address] , [place]. tel:[phone] Referring Provider: И[address]ина [address], [place], [place], [address]. tel:[phone] OFFICE/OUTPA TIENT VISIT, [facility], [place], [address], [place], [place], [address], [place] tel:[phone] [facility] HLP (chief complaint) anxiety1 (chief complaint) GERD1 (chief complaint) drropy eye (chief complaint) back pain1 (chief complaint) HyperlipidemiaGERD w/ esophagitisGenerali zed Anxiety DisorderLumbago 7 Jorge Hemphill. [address], [place], [place], [address] , [place]. tel:[phone] Referring Provider: Ирина Duran [address], [place], [place], [address]. tel:[phone] OFFICE/OUTPA TIENT VISIT, [facility], [place], [address], [place], [place], [address], [place] tel:[phone] [facility] anxiety1 (chief complaint) HTN (chief complaint) GERD1 (chief complaint) HLP (chief complaint) GERD w/o esophagitisGenerali zed Anxiety DisorderHyperlipide miaEssential (primary) hypertension 7 Jorge Hemphill. [address], [place], [place], [address] , [place]. tel:[phone] Referring Provider: Ирина Duran [address], [place], [place], [address]. tel:[phone] PREV VISIT, NEW, AGE 40-64 [facility], [address], [place], [place], [address], [place] tel:[phone] [facility] PHysical (chief complaint) Encounter for general adult medical exam w abnormal findingsGERD w/ esophagitisGenerali zed Anxiety DisorderOveractive bladder 7 Jorge Hemphill. [address], [place], [place], [address] , [place]. tel:[phone] Referring Provider: Ирина Duran [address], [place], [place], [address]. tel:[phone] Family History Family Member Type Diagnosis Age At Onset Father Problem (finding) parkinson Brother Problem (finding) Hypertension Brother Problem (finding) Alive and well Mother Problem (finding) Alive and well Payers Payer name Insurance type Covered alliance party ID Authoriza tion(s) No Information Social History Type Description Quantity Date Captured Comments Sex Female Smoking Status No Information Chief Complaint And Reason For Visit No Information Plan Of Treatment Date Type Action Status Referral Ordered: Kobe Adamson (related to Lumbago with sciatica, left side) ordered Referral Referred To: Kobe Adamson [address] [place], [phone] Ordered: Referrals: Kobe Adamson. Evaluate and treat ordered Referral Ordered: MRI LUMBAR SPINE W/O DYE ordered Referral Ordered: CT MAXILLOFACIAL W/O DYE (SINUSES) SF ordered Referral Ordered: AP PELVIS AND BILATERAL HIPS XRAY ordered Referral Ordered: COLONOSCOPY AND BIOPSY ordered History Of Present Illness Encounter Date Complaint History Of Prese nt Illness HTN Pt has HTN. Pt t akes nifedipine and HCTZ. her BP is ok. Pt denies any chset pain or headache back pain1 Pt has chronic l ow back pain. pt denies any worsening pain Pt denies any loss of bladder control. her appointment with neurosurgery was canceled one hour before her appointment and she has another appointment in two months. pt is upset. Pt states taht she has severe low back pain with sciatica and leg numbness. Pt sometimes has to take some extra pain meds towards the end of the day. anxiety1 Pt has chronic a nxiety and depression. Pt takes paxil and xanax and doing ok. pt denies any suicidal or homicidal thought. Pt denies any cyring spells. HLP Pt has HLp. Pt t akes lipitor. Pt needs refill. Pt denies any myalgia GERD1 Pt has GERD Pt f kendall zantac. Pt is on omeprazole. Pt still has not set up endoscopy yet. pt doing ok with omeprazole OAB Pt has OAB. Pt h as urgency and frequency and some stress induced leakage. Pt states oxybutynin caused her to have severe dry mouth. Pt uanble to tolerate it. anxiety1 Pt has chronic a nxiety and depression Pt takes paxil and xanax PRn and doing ok. Pt denie sany suicidal or homicidal thought. pt denies any cyring spells back pain1 Pt has chronic l ow back pain. pt denies any worsening pain. Pt denies any loss of bladder control. Pt has sciatica both legs. Pt states that ultram does not help her pain. pt has 7/10 pain GERD1 Pt has chronic G ERD. Pt is on omeprazole. Pt still has not set up the EGD and colonoscpy yet. Pt states that she is too busy currently OAB Pt has OAB. pt t akes oxybutynin 2.5 mg qhs and doing ok. pt denies any UTi symptoms anxiety1 Pt has chronic a nxiety and depression. Pt takes paxil and xanax PRn. Pt denies any suicidal or homicidal thought. Pt denies any crying spells OAB Pt has urgency a nd frequency and she has OAB. Pt states that oxybubynin worked too well and she has diffiuclty urinating since taking the oxybubynin. Pt denies any buring and pelvic pain back pain1 Pt has chronic l ow back pain. Pt c/o left sciatica and left leg numbness. Pt denies any loss of bladder or bowel control. Pt had MRi done which showed L4-5 impingement and left side foraminal stenosis. Pt takes ultam PRN for pain back pain1 Pt has chornic l ow back pain. Pt denies any loss of bowel or bladder control. Pt has been noticing numnbess and tingling both legs. Pt denies any worsening pain or any weakness. Pt failed PT OAB Pt has urinary u rgency and frequency. Pt denies any UTI symptmos. pt states that oxybutynin BID is too much. Pt takes once per day and is doing ok. Pt denies any flank pain sinusitis1 Pt has chronic s inus symptoms which resolved now. Pt had normal sinus cT HLP Pt has HLP. Pt t akes lipitor. Pt denies any myalgia anxiety1 Pt has chronic a nxiety and depression. Pt takes paxil and xanax and doing ok. Pt denies any suicidal or homicidal thought sinus Pt has been havi ng severe sinus infection for 6 weeks. Pt had bilateral eye lid surgery and she started to have sinus pain and purulent sinus drainage since the surgery. Pt also has ear pain and muffling hearing. Pt denies any sore throat. pt states that her senior it auditor treated her with abx x 3 rounds but she still not getting better. Pt also notices some sinus swelling post op. Pt also has sinus headache. GERD1 Pt has chronic G ERD. Pt has not seen Dr. Smith yet for the EGD consultation. pt denies any GI symptoms with omeprazole tobacco1 Pt smokes about 1 PPD. Pt denies any sob. obeisty1 Pt is overweight . Pt has hard time losign weight with diet and exercise OAB Pt has oAb. Pt h as frequent urgency to urinate Pt denies any dysuria. pt takes vesicare chronically which work ok Pt seen urology and had negative cystoscopy per pt and other work up. Pt states that vesicare works well GERD1 Pt takes omerpzo le. Pt will haev EGD done soon by Dr. Smith. Pt doing ok with omeprazole HTN Pt takes hctz an d nifedipine and her BP is stable. Pt denies any chest pain anxiety1 Pt has chronic a nziety and depression. Pt takes paxil and xanax and doing ok Pt denies any suicidal or homicdial thought pt denies any cyring spells back apin1 Pt has some back and hip pain due to arthritis. Pt states that ultram partially relieved her pain. Pt denies any worsening pain HLP Pt has HLP. Pt t akes lipitor. Pt denies any myalgia. her lab is ok now. anxiety1 Pt has chronic a nxiety and depression. Pt takes paxil and xanax and doing ok. Pt denies any suicidal or homicdial thought Pt denies any crying spells. eyelid1 pt has chronic b ilaeral eyelid drooping. Pt will have surgery and she needs surgical clearance. Pt will undergo monitored anesthesia. Pt denies any chest pain Pt denies any h/o adverse reaction with anesthesia back pain1 Pt states that s he has rather severe low back and hip pain Pt denies any worsening pain. pt denies any loss of bowel or bladder control. Pt has sciatica and leg numnbess. Pt failed PT. Pt had xray done which showed DDD and osteoarthritis. HLP Pt has HLP Pt ta supa lipitor. Pt denies any myalgia back pain1 Pt has chronic l ow back pain. Pt has history of DDD. Pt states that she has low back pain pain with radiation to both hip. pt denies any injury. pt denies any sciatica Pt denies any loss of bladder control drropy eye Pt has droopy le ft eye due to chronic muscle weakness Pt is seeing ophthalmology and plan for surgery soon. Pt denies any eye vision problem GERD1 Pt takes omepraz ole and doing ok Pt denies any GERD Pt has not set up the EGD yet anxiety1 Pt has chronic a nxiety and depression Pt takes paxil and xanax and doing ok. Pt denies any suicidal or homicdial thought. Pt denies any crying spells HLP Pt has HLP. Pt t akes lipitor. pt tolerating it ok Pt denies any myalgia. Pt is on low fat and low carb diet anxiety1 Pt has chronic a nxiety and depression. Pt takes paxil and xanax and doing ok Pt denies any suicidal or homicidal thought. Pt denies any crying spells HTN Pt takes nifedip ine and HCTZ and her BP is stable. Pt denies any chest pain or headache GERD1 Pt has daily OLU D. Pt take omeprazole. Pt states that she canot tolerate without omeprzole due to GERd. Pt denies any abd apin HLP Pt has HLP. Pt i s not on any diet. Pt has low D PHysical Pt needs annual physical. Pt has HTN and she takes nifedipine and HCTZ and her BP is stable. Pt has chronic anxiety and depression and she takes paxil and xanax PRN. Pt denies any sucidal or homicidal thought. Pt denies any crying spells. Pt has OAB and she takes vesicare. Pt tried detrol and oxybutynin in the past but did not work. Pt has urgency and frequency. Pt also has GERd and she takes omeprazole for years .Pt did EGD years ago and was told normal. Pt denies any other complaints Instructions Date Instruction Additional Infor jocelynn Prescribed Diet Educ ation/Lifestyle Education Regarding Diet Related to Dietary Surveillance and Counseling Increase physical activity Relat ed to Generalized Anxiety Disorder Quit smoking Related to Gener alized Anxiety Disorder Prescribed Activity and Exercise Education Related to Dietary Surveillance and Counseling Prescribed Diet Educ ation/Lifestyle Education Regarding Diet Related to Dietary Surveillance and Counseling Avoid provocative fo ods: citrus, alcohol, coffee, chocolate, mints Related to GERD w/o esophagitis Eat smaller meals, n o eating three hours prior to bedtime Related to GERD w/o esophagitis Elevate head of bed prior to sle ep Related to GERD w/o esophagitis Prescribed Activity and Exercise Education Related to Dietary Surveillance and Counseling Weight management Related to Ove ractive bladder Prescribed Activity and Exercise Education Related to Dietary Surveillance and Counseling Prescribed Diet Educ ation/Lifestyle Education Regarding Diet Related to Dietary Surveillance and Counseling Increase physical activity Relat ed to Overactive bladder Quit smoking Related to Overa ctive bladder Prescribed Activity and Exercise Education Related to Dietary Surveillance and Counseling Prescribed Diet Educ ation/Lifestyle Education Regarding Diet Related to Dietary Surveillance and Counseling Quit smoking Related to Lumba go with sciatica, left side Prescribed Activity and Exercise Education Related to Dietary Surveillance and Counseling Prescribed Diet Educ ation/Lifestyle Education Regarding Diet Related to Dietary Surveillance and Counseling Increase physical activity Relat ed to Lumbago Quit smoking Related to Lumba go Prescribed Activity and Exercise Education Related to Dietary Surveillance and Counseling Prescribed Diet Educ ation/Lifestyle Education Regarding Diet Related to Dietary Surveillance and Counseling Quit smoking Related to Tobac co use Prescribed Diet Educ ation/Lifestyle Education Regarding Diet Related to Dietary Surveillance and Counseling Prescribed Activity and Exercise Education Related to Dietary Surveillance and Counseling Prescribed Diet Educ ation/Lifestyle Education Regarding Diet Related to Dietary Surveillance and Counseling Prescribed Activity and Exercise Education Related to Dietary Surveillance and Counseling Prescribed Diet Educ ation/Lifestyle Education Regarding Diet Related to Dietary Surveillance and Counseling Prescribed Activity and Exercise Education Related to Dietary Surveillance and Counseling Prescribed Activity and Exercise Education Related to Dietary Surveillance and Counseling Prescribed Diet Educ ation/Lifestyle Education Regarding Diet Related to Dietary Surveillance and Counseling Prescribed Diet Educ ation/Lifestyle Education Regarding Diet Related to Dietary Surveillance and Counseling Prescribed Activity and Exercise Education Related to Dietary Surveillance and Counseling Assessments Type Assessment Date No Information
--- OUTSIDE RECORDS SUMMARY | 2025-01-18 05:00 | XMS_ITS ---
Author Organization 1 OF Ladi montaño DPM [facility] Address [facility] [employer] [address] [address] Care Team Providers Care A And P Technician Name Role Phone Audra Mercado APRN Primary Care Provider Lily Downey Unavailable [phone] REASON FOR VISIT RT ankle pain Encounters Encounter Location Date Provider Diagnosis 1 [facility] [address] [address] 01/18/2025 Lily Schroeder Plan Of Treatment No Information Progress Notes * Ofe MAGAÑADOB:1965 (59 yo F)Acc No.[id number]:01/18/2025 Progress Notes Patient: Ofe BURKS Provider: Gail Schroeder DPM :1965 A ge:59 Y S ex:Female Date:01/18/2025 Address:[address] [place] [id number] Pcp:Audra Mercado APRN Subjective: * Chief Complaints: * 1 . RT ankle pain. * Medical History: Objective: * Vitals: Assessment: Plan: * Treatment: * Images: * Electronic signature of Dasha Schroeder DPM on 04/25/2025 at 04:44 PM CDT Sign off status: Pending * Provider: Gail Schroeder DPM Date: 0 01/18/2025 Generated for Cee kaur/Emani/Brianaitting on: 0 04/25/2025 04:44 PM CDT
--- NOTE | ~2025-04-25 | MR_ITS ---
EXAMINATION: MR ankle RT wo con DATE: 04/25/2025 16:20 INDICATION: Posterior tibial tendinitis at the right leg TECHNIQUE: Magnetic resonance imaging (MRI) of the right ankle was performed without intravenous contrast. Sequences included sagittal, coronal, and axial proton-density weighted fast spin echo without and with fat saturation. COMPARISON: None. FINDINGS: Medial ankle ligaments: Deep and superficial deltoid ligaments as well as the spring ligament are normal. Lateral ankle ligaments: The anterior and posterior inferior tibiofibular ligaments are normal. The anterior talofibular, calcaneofibular and posterior talofibular ligaments are normal. Tendons: Achilles tendon is normal. Mild peroneal tenosynovitis. The peroneus longus tendon is normal. There is mild tendinopathy and longitudinal split tear of the peroneus brevis tendon centered at the level of the tip of the lateral malleolus. The tibialis anterior and extensor hallucis longus and extensor d igitorum longus tendons are normal. The tibialis posterior, flexor digitorum longus and flexor hallucis longus tendons are normal. Plantar fascia: Mild thickening and mild increased signal of the proximal plantar aponeurosis with small to moderate sized plantar calcaneal spur at its calcaneal origin. No associated marrow edema or surrounding soft tissue edema to suggest acute plantar fasciitis. Bones/other: Bone alignment is normal. No fracture or pathologic marrow replacing process. Normal type II os naviculare. 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 Fluid: Multilobulated ganglion cysts arising from the posterior recess of the ankle and subtalar joints with component extending cephalad along the posterior margin of the inferior tibiofibular ligament and the second extending laterally and inferiorly along the body of the calcaneus posterior to the peroneal tendons. Otherwise physiologic amount fluid in the joint spaces. IMPRESSION: 1. Peroneal tenosynovitis with mild tendinopathy and longitudinal split tearing of the peroneus brevis tendon at the level of the distal tip of the lateral malleolus. 2. 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 Reviewed, dictated and finalized at location A. IMPRESSION: 1. Peroneal tenosynovitis with mild tendinopathy and longitudinal split tearing of the peroneus brevis tendon at the level of the distal tip of the lateral ma lleolus. 2. 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
--- OUTSIDE RECORDS SUMMARY | 2025-04-25 16:44 | XMS_ITS | Patient Health Record ---
Author Organization [facility] Address [address] [address] Care Team Providers Care Cartography Teacher Name Role Phone Audra Mercado APRN Primary Care Provider Lily Downey Unavailable [phone] Mason Vickers Unavailable [phone] Allergies Allergen (clinical drug ingredient) Drug/Non Drug [...] Status Risk Notes Problem Acquired hallux rigidus (2745660) Hallux rigidus, right foot (M20.21) Active confirmed Problem Laxity of ligament (01698949) Ligamentous laxity of right ankle (M24.271) Active confirmed Vital Signs Height 65 in 03/15/2025 Weight 190 lbs 03/15/2025 BMI 31.61 kg/m2 03/15/2025 Encounters Encounter Location Date Provider Diagnosis 1 OF Ladi Paredes [facility] [address] [place] [address] 10/19/2024 Lily Schroeder Hallux rigidus, righ t foot M20.21 ; Peroneal tendonitis of right lower leg M76.71 and Right foot pain M79.671 1 OF Ladi Paredes [facility] [employer] [address] [place] [address] 03/15/2025 Lily Schroeder Ligamentous laxity o f right ankle M24.271 ; Peroneal tendonitis of right lower leg M76.71 and Right foot pain M79.671 1 OF Ladi Paredes [facility] [address] [place] [address] 10/11/2024 Mason Vickers Assessments Encounter Date Diagnosis [...] Date [employer] Medicare Complete [address] [address] [place] [address] [id number] Ofe Magaña Self - patient is the insured [facility] [address] [address] [place] [address] [id number] Ofe Magaña Self - patient is the insured Medical (General) History Medical History History ICD Code Anxiety disorder Arthritis High blood pressure High cholesterol Migraine Hallux Rigidus Pes planus PAD
--- OUTSIDE RECORDS SUMMARY | 2025-04-25 16:44 | XMS_ITS | Clinical Summary ---
Author Organization [facility] Address [address] [place] [address] Care Team Providers Care Grout Pump Operator Name Role Phone Audra Mercado ARJUN Primary Care Provider [phone] Source Comments [facility],non-owned Affiliates and Associated Physician Practices is amultiple site organization consisting of ambulatory clinics and hospital sitesin [place], [place], [place] and [place]. This disclosure is being madepursuant to the Care Everywhere program and may not contain all information available regarding this patient. Last updated 18.[facility] Allergies Active Allergy Reactions Criticality Noted Date [...] MAMMOGRAM 02/04/2020 02/03/2018 (Done Outside Per Report) SCREENING FOR DIABETES 01/08/2021 8 (Done Outside Per Report) DEPRESSION SCREENING 08/10/2024 MEDICARE AWV CALENDAR YEAR 2024 COVID-19 VACCINE ( season) 2025 05/28/2022, 05/09/2021, 10/16/2020, Additional history exists INFLUENZA VACCINE (#1) 2025 3, 05/20/2022, 04/27/2021, Additional history exists DTAP/TDAP/TD VACCINES (2 - [...] MEDICAID - OUT OF STATE MEDICARE [facility] MANAGED MEDICARE [facility] Care Teams Grout Pump Operator Relationship Specialty Start Date End Date Audra Mercado APRN-CNP [address] [place] [address] PCP - General 02/28/19
--- OUTSIDE RECORDS SUMMARY | 2025-04-25 16:44 | XMS_ITS | Encounter Summary ---
Author Organization [facility] Address [address] [place] [address] Care Team Providers Care Diffusion Operator Name Role Phone Soraya Hodgson IT COMPLIANCE MANAGER-POLYSTYRENE MOLDING MACHINE TENDER Primary Care Provider Audra Mercado IT COMPLIANCE MANAGER-POLYSTYRENE MOLDING MACHINE TENDER Primary Care Provider [phone] Reason for Visit * Reason Onset Date Comments MEDICATION REFILL 07/04/2018 refill request Encounter Details Date Type Department Care Team (Late st Contact Info) Description 07/04/2018 Refill [facility] Internal Medicine [address] [address] Soraya Hodgson, IT COMPLIANCE MANAGER-POLYSTYRENE MOLDING MACHINE TENDER [address] [place] [address] MEDICATION REFILL (refill request ) Social History [...] was completed on 04-19-18. [facility] [address] [facility] [address] [facility] [address] CTOR COMPLIANCE * Telephone Encounter - Mervat Yoder - 07/05/2018 7:44 AM CSTFrom: Ofe Magaña To: Soraya Renner APRN-CNP Sent: 07/04/2018 5:07 PM DIRECTOR COMPLIANCE Subject: Medication Renewal Request Original authorizing provider: ARJUN Garza would like a refill of the following medications: omeprazole (PRILOSEC) 20 MG capsule [ARJUN Garza] [facility] [address] [address] [facility] [place] [id number] Comment: Also need refills on Paroxetine 40 mg Atorvastatin 40 mg I never did get the Nabumetone it only comes in the 750 mg. My pharmacy has sent information to you all and have never heard back from you all. CTOR COMPLIANCE documented in this encounter Plan of Treatment Not on file documented as of this encounter Visit Diagnoses Diagnosis Gastroesophageal reflux disease without esophagitis Esophageal reflux documented in this encounter Care Teams Diffusion Operator Relationship Specialty Start Date End Date Soraya Hodgson APRN-CNP [address] [place] [address] PCP - General 02/22/18 02/27/19 Audra Mercado APRN-CNP [address] [place] [address] PCP - General 02/28/19 documented as of this encounter
--- OUTSIDE RECORDS SUMMARY | 2025-04-25 16:44 | XMS_ITS | Encounter Summary ---
Author Organization [facility] Address [address] [place] [address] Care Team Providers Care [employer] Name Role Phone Audra Mercado NP Primary Care Provider [phone] Kathleen, Physician Primary Care Provider [phone] Audra Mercado NP Primary Care Provider + [phone] Reason for Visit * Reason Onset Date Comments CALL BACK 01/13/2018 Encounter Details Date Type Department Care Team (Late st Contact Info) Description 01/13/2018 Telephone [facility] [address] [facility] [address] [place] [address] Joseph Orlando MD [address] [place] [address], [address] [address] CALL BACK Social History Tobacco Use Types Packs/Day Years Used Date Smoking Tobacco: Every Day Comments Unknown Sex and Gender Information Value Date Recorded Sex Assigned at Not on file 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
--- OUTSIDE RECORDS SUMMARY | 2025-04-25 16:45 | XMS_ITS | Clinical Summary ---
Author Organization [facility] Address [address] [place] [address] Care Team Providers Care Machine I Engraver Name Role Phone Audra Mercado NP Primary Care Provider Allergies Active Allergy Reactions Criticality Noted Date [...] 06/25/2022 Assessment & Plan (06/25/2022 4:25 PM ESTATE PLANNING PARALEGAL): Ms. Magaña has cervical stenosis C4-5 C5-6 [...] 08/10/2013 Surgical History Surgery Date Site/Laterality Comments HI TOTAL ABDOMINAL HYSTERECT W/WO RMVL TUBE OVARY Hysterectomy - (Added by TW Conv) EYE SURGERY Eye Surgery - (Added by TW Conv) FOOT SURGERY Foot Surgery - (Added by TW Conv) HI NEUROPLASTY &/TRANSPOS MEDIAN NRV CARPAL TUNNE Neuroplasty Decompression Median Nerve At Carpal Tunnel - (Added by TW Conv) SINUS SURGERY Sinus Surgery - (Added by TW Conv) HI INJ LUMBAR/SACRAL,W/WO CNTRST Corticosteroid Injection Interlaminar Approach [...] on file Legal Sex Female 6:13 AM ESTATE PLANNING PARALEGAL Gender Identity Not on file Sexual Orientation Not on file Obstetrics History Last Filed Vital Signs Vital Sign Reading Time Taken Comments Blood Pressure 147/73 04/04/2022 9:38 AM CDT Pulse 88 04/04/2022 9:38 AM CDT Temperature 36.8 C (98.3 F) 05/14/2018 8:59 AM CDT Respiratory Rate 16 06/25/2022 3:22 PM ESTATE PLANNING [employer] Oxygen Saturation 97% 03/04/2018 9:58 AM CDT Inhaled Oxygen Concentration - - Weight 82.6 kg (182 lb) 06/25/2022 3:22 PM ESTATE PLANNING [employer] Height 165.1 cm (5' 5) 06/25/2022 3:22 PM ESTATE PLANNING [employer]ALEGAL Body Mass Index 30.29 06/25/2022 3:22 PM ESTATE PLANNING PARALEGAL Plan of Treatment Health Maintenance Due Date Last Done Comments Breast Cancer Screening-Mammogram 1966 Colon Cancer Screening-Colonoscopy 1966 Hepatitis C Screening 1966 Hepatitis B Screening 1984 Regular Well Visit/Exam 18-64 1984 Pneumococcal vaccine <65 (3 of 3 - PCV20 or PCV21) 2016 08/14/2006, 08/10/2005, 08/10/2005 Depression Screening 06/25/2023 06/25/2022, 06/25/20 22 Covid-19 Vaccine (4 - 2024-2 6 season) 2025 05/09/2021, 10/16/2020, 09/18/2020 Influenza Vaccine (#1) 2025 , 04/27/2021, 04/27/2020, Additional history exists DTaP/Tdap/Td Vaccine (4 - Td or Tdap) 02/23/2028 02/22/2018, 08/10/2001, 08/10/2001 Zoster Vaccine Completed 07/21/2020, 04/27/2020 Insurance [facility] MEDICAID MEDICARE ID[facility] MEDICARE ADVANTAGE MEDICARE IDPA MEDICARE IDPA Care Teams Machine I Engraver Relationship Specialty Start Date End Date Audra Mercado NP [address] [place] [address] PCP - General Nurse Practitioner 04/01/22
--- OUTSIDE RECORDS SUMMARY | 2025-04-25 16:45 | XMS_ITS | Encounter Summary ---
Author Organization [facility] Address [address] [place] [place] [address] Care Team Providers Care Grain Shipper Name Role Phone Soraya Hodgson JUNIOR WEB DESIGNER-MILLINERY TEACHER Primary Care Provider Audra Mercado JUNIOR WEB DESIGNER-MILLINERY TEACHER Primary Care Provider [phone] Reason for Visit * Reason Onset Date Comments Question 02/23/2018 Encounter Details Date Type Department Care Team (Late st Contact Info) Description 02/23/2018 Telephone [facility] General Internal Medicine [address] [address] Soraya Hodgson, JUNIOR WEB DESIGNER-MILLINERY TEACHER [address] [place] [address] Question Social History Tobacco Use Types Packs/Day [...] 11:14 AM CDT PT: Gómez Thakur PH: [phone] Ms. Carrington called from Medicaid DME requesting that LUDIN Renner send a order for a cane for the patient and would like it faxed to [phone] and would like her to call when completed and Ms. Carrington's number is [phone]. MELVIN: 02.22.18 NOV: 05.26.18 Vero Gomes documented in this encounter Plan of Treatment Not on file documented as of this encounter Visit Diagnoses Not on filedocumented in this encounter Care Teams Grain Shipper Relationship Specialty Start Date End Date Soraya Hodgson APRN-MILLINERY TEACHER [address] [place] [address] PCP - General 02/22/18 02/27/19 Audra Mercado APRN-CNP [address] [place] [address] PCP - General 02/28/19 documented as of this encounter
== END 2025-04-25 15:35 | disposition home or self-care (01) ==
PROVIDERS: PCP Nurse Practitioner Family; Visit Provider Orthopaedic Surgery
DX: M76.821 Posterior tibial tendinitis, right leg (principal); M19.071 Primary osteoarthritis, right ankle and foot
CPT/HCPCS: 73721